=== PATIENT | male | born 1955 | race Caucasian/White ===

== ENCOUNTER → 2021-04-14 07:03 | Outpatient (CLI) | payer OTHER, SELFPAY ==
[2021-02-03 08:59] VITALS: BMI 45.0
--- NOTE | 2021-04-14 07:12 | MRI_ITS ---
HISTORY: Bilateral lower extremity radiculopathy. TECHNIQUE: Multiplanar and multisequence MR images of the lumbar spine. IV Contrast dosage and agent: None. # of images incl. paperwork: 130. COMPARISON: None. FINDINGS: VERTEBRAE: Vertebral body heights maintained. Degenerative fatty bone marrow endplate changes at multiple levels. ALIGNMENT: No significant anterior or posterior subluxation. CONUS: Normal morphology and position at L1-2. SOFT TISSUES: No paraspinal fluid collection. INTERVERTEBRAL DISCS: T12-L1, L1-2: No significant posterior disc herniation, central canal stenosis, or foraminal narrowing. L2-3:Mild disc bulge with facet arthropathy resulting in mild bilateral foraminal narrowing. No significant central canal stenosis. L3-4: Moderate disc bulge and facet arthropathy superimposed on a developmentally narrow spinal canal resulting in mild central canal stenosis and moderate bilateral foraminal narrowing. L4-5: Mild posterior disc bulge osteophyte complex and facet arthropathy superimposed on a developmentally narrow spinal canal with prominent dorsal epidural fat resulting in moderate-severe narrowing of the thecal sac and bilateral foramina. L5-S1: Mild posterior disc bulge osteophyte complex with annular fissure and facet arthropathy resulting in mild bilateral foraminal narrowing. Superimposed right paracentral disc extrusion with probable impingement of the right S1 nerve root. MRI/Spine Lumbar (Routine) IMPRESSION: Multilevel degenerative disc disease as described above. at 1650 Reported and signed by: Evita Schwab MD Electronically Signed: Evita Schwab MD at 16:49 EDT Tel , Service support ,
--- NOTE | 2021-04-14 07:12 | MRI_ITS ---
STUDY: MRI BRAIN WITH AND WITHOUT CONTRAST REASON FOR EXAM: Male, 65 years old. Parkinson''s disease TECHNIQUE: Standardized multiplanar fat and water weighted pulse sequences were obtained. 23ml IV Dotarem was administered for the contrast portion of the examination. COMPARISON: None. FINDINGS: Normal size of the ventricles and extra-axial spaces for the patient''s age. There is focal gliosis in the left parietal lobe consistent with old infarct.. No evidence for acute infarct at this time Normal bilateral basal ganglia. Normal thalami. There is no extra-axial fluid accumulation. Normal flow voids within the major intracranial circulation suggesting patency by spin echo criteria. Normal venous enhancement. There is no enhancing intra-axial or extra-axial abnormality. Normal sella turcica, pituitary gland, infundibular stalk, optic chiasm and hypothalamus. Normal tectal plate and pineal gland. Normal midbrain, justo and medulla. Foci of chronic ischemia within the right cerebellar hemisphere.. Normal basal cisterns. Normal bilateral temporal bones. Normal bilateral internal auditory canals. Postsurgical changes of the orbits. Mild mucosal thickening of the ethmoid air cells.. Normal calvarium and skull base. Normal visualized soft tissue structures. Normal visualized upper cervical spine. MRI/Brain W/WO Contrast IMPRESSION: Old left parietal lobe infarct and mild chronic ischemic changes in the right cerebellar hemisphere. No evidence for acute infarct. No enhancing lesions following contrast injection Electronically Signed: Edwin Hunt MD at 16:55 EDT , Service support ,
[2021-04-14 07:36] LABS: CREATININE FINGERSTICK 0.7 mg/dL (0.70-1.30); EGFR FINGERSTICK > 60.0000 mL/min (>60)
== END ==
PROVIDERS: Referring Provider Psychiatry & Neurology Neurology; Visit Provider Psychiatry & Neurology Neurology
DX: G20 Parkinson's disease (principal); M54.5 Low back pain; M54.16 Radiculopathy, lumbar region
CPT/HCPCS: 70553; 72148; A9575

== ENCOUNTER → 2021-05-03 08:50 | Outpatient (CLI) | payer OTHER, SELFPAY ==
[2021-04-28 15:30] VITALS: BMI 45.0
[2021-05-03 09:57] LABS: Hepatitis B Surface Antibody Reactive
[2021-05-05 20:08] LABS: Free Kappa Light Chains 23.2 mg/L (3.3-19.4); Free Lambda Light Chains 17.8 mg/L (5.7-26.3); HEPATITIS B SURFACE AG Negative (Negative); Hepatitis A IgM Antibody Negative (Negative); Hepatitis B Core AB IgM Negative (Negative); Vitamin B1, Thiamine 114.7 nmol/L (66.5-200.0)
[2021-05-06 10:58] LABS: Hep C Antibodies >11.0 s/co ratio (0.0-0.9); Hepatitis A AB, Total Negative (Negative)
== END ==
PROVIDERS: Referring Provider Psychiatry & Neurology Neurology; Visit Provider Psychiatry & Neurology Neurology
DX: G62.9 Polyneuropathy, unspecified (principal); B19.20 Unspecified viral hepatitis C without hepatic coma
CPT/HCPCS: 36415; 80074; 82746; 83883; 84425; 86706; 86708

== ENCOUNTER 2021-11-14 10:00 | Outpatient (CLI) | payer OTHER, SELFPAY ==
[2021-04-28 15:30] VITALS: BMI 45.0
--- NOTE | 2021-11-14 12:44 | NEURO ---
NCS and/or EMG Patient Report Ordering Doctor: Saeed Christensen DATE OF SERVICE: 11/14/21 Indication: Bilateral lower extremity numbness. Superimposed pain and weakness when walking for prolonged periods of time. History of lumbar spondylosis. Evaluate for lumbosacral radiculopathy. Findings: Nerve conduction studies were performed in the right and left lower extremity. The right peroneal motor study recording the extensor digitorum brevis showed a reduced amplitude, normal distal latency and mildly slowed conduction velocity. No conduction block or focal slowing was present across the fibular neck. The right tibial motor study recording the abductor hallucis brevis showed a reduced amplitude, normal distal latency and mildly slowed conduction velocity. The right sural sensory response showed an absent response. The right superficial peroneal sensory response showed an absent response. The left peroneal motor study recording the extensor digitorum brevis showed reduced amplitude, normal distal latency and mildly slowed conduction velocity. No conduction block or focal slowing was present across the fibular neck. The left tibial motor study recording the abductor hallucis brevis showed a reduced amplitude, normal distal latency and mildly slowed conduction velocity. The left sural sensory response showed an absent response. The left superficial peroneal sensory response showed an absent response. Needle EMG of the right and left lower extremities and lumbar paraspinal muscles was performed. No denervation was present in any muscle. Motor units were demonstrated reinnervation changes in a length-dependent fashion. However, significant reinnervation was also seen in the tensor fascia kj muscles bilaterally (breaking the pattern). Impression: This is an abnormal study. 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 The reinnervation changes seen in the tensor fascia kj muscles are suggestive, but not diagnostic, of superimposed, chronic L5 radiculopathies. However, there is no active denervation to suggest ongoing motor axon loss due to either etiology. lumbosacral radiculopathy, plexopathy, or peripheral neuropathy of either the right or left lower extremity. Andrew Salas D.O. Multi Select Codes Neurology Neurology Interp Codes: 05749-63 Musc test done w/n test comp (interp) (Qty:2) and 06610-02 Nrv cndj test 7-8 studies (interp)
== END 2021-11-14 23:59 | disposition home or self-care (01) ==
PROVIDERS: Referring Provider Psychiatry & Neurology Neurology; Visit Provider Psychiatry & Neurology Neurology
DX: G62.9 Polyneuropathy, unspecified (principal); M54.17 Radiculopathy, lumbosacral region
CPT/HCPCS: 95886; 95910

== ENCOUNTER → 2022-01-12 | Outpatient (CLI) | payer OTHER, MEDICARE, SELFPAY ==
[2022-01-16 16:09] LABS: Albumin 4.2 g/dL (2.9-4.4); Alpha-1-Globulins 0.2 g/dL (0.0-0.4); Alpha-2-Globulins 1.1 g/dL (0.4-1.0); Immunoglobulin A 334 mg/dL (61-437); Immunoglobulin G 1074 mg/dL (603-1613); Immunoglobulin M 95 mg/dL (20-172); PROEL- TOTAL PROTEIN 7.7 g/dL (6.0-8.5)
== END | disposition home or self-care (01) ==
LOC: MTLAB 08:45
PROVIDERS: Referring Provider Psychiatry & Neurology Neurology; Visit Provider Psychiatry & Neurology Neurology
DX: G62.9 Polyneuropathy, unspecified (principal)
CPT/HCPCS: 36415; 82784; 84165; 86334; 86335

== ENCOUNTER → 2023-10-09 | Outpatient (CLI) | payer OTHER, SELFPAY ==
--- NOTE | 2023-10-09 08:00 | CT_ITS ---
STUDY: LOW DOSE CT LUNG CANCER SCREENING REASON FOR EXAM: Male, 68 years old. SCREENING. The patient smoked 1 pack per day for 60 years. COPD. RADIATION DOSAGE (If Supplied By Facility): CTDIvol = ( 4.02 ) mGy, DLP = ( 136.92 ) mGycm TECHNIQUE: No contrast was administered. Low dose technique was utilized (average mAS-38 and kVp 120). 1.25 mm axial source images with a slice interval of 1.25-mm were reconstructed in lung windows. 2.5 mm axial source images with a slice interval of 2.5-mm were reconstructed in lung windows. 5.0 mm axial source images with a slice interval of 5.0-mm were reconstructed in soft tissue windows. COMPARISON: None. Emphysema: Hyperinflation. Diffuse emphysematous changes with bullous formation worse in the upper lobes. Increased markings with areas of confluence in the anterior medial aspect of the right middle lobe. This is suggestive of scarring although correlation with a PET scan is recommended. Endobronchial lesion: None Aorta: Atherosclerotic plaque formation of the aorta. CORONARY ARTERIES: Coronary artery calcification is seen. Heart: Unremarkable Pulmonary artery: Unremarkable Mediastinal nodes: Small mediastinal lymph nodes. Other chest and abdominal findings: CT/Low Dose CT Lung Screening IMPRESSION: Lung-RADS category 4A - Screening at 3 months with LDCT or evaluation with PET/CT may be used. IMPORTANT NOTES FOR USE: ACR Lung-RADS Version 1.1 Assessment Categories Release Date: 2018 Category: Coded 0-4 bases on nodule(s) with highest degree of suspicion. Negative screen is defined as categories 1 and 2; a positive screen is defined as categories 3 and 4. Category 3 and 4A nodules that are unchanged on interval CT should be coded as category 2, and individuals returned to screening in 12 months. Category 4X: Category 3 or 4 nodules with additional imaging findings that increase the suspicion of lung cancer, such as spiculation, GGN that doubles in size in 1 year, enlarged lymph notes, etc. Category Modifiers: S (significant finding unrelated to lung cancer) Electronically Signed: Curry Padron MD at 14:22 EST ,
--- NOTE | 2023-10-09 08:01 | AAAS_ITS ---
Reason For Study: HTN Aorta Measurements Aorta Doppler Measurements Proximal aorta measures1.61 x 1.58cm. in cross- Peak systolic flow velocities within the proximal sectional axis. aorta measure 83.2 cm/sec. Proximal aorta measures1.66cm. in longitudinal Peak systolic flow velocities within the mid aorta axis. measure 85 cm/sec. Mid aorta measures1.67 x 1.72cm. in cross- Peak systolic flow velocities within the distal sectional axis. aorta measure 99.5 cm/sec. Mid aorta measures1.73cm. in longitudinal axis. Distal aorta measures1.37 x 1.39cm. in cross- sectional axis. Distal aorta measures1.42cm. in longitudinal axis. Left Iliac Artery Left iliac artery measures 0.90 x 0.86 cm. in the cross-sectional axis. Left iliac artery measures 0.95 cm. in the longitudinal axis. Peak systolic velocity in the left iliac artery measures 95.9 cm/sec. Right Iliac Artery Right iliac artery measures 1.01 x 1.03 cm. in the cross-sectional axis. Right iliac artery measures 1.01 cm. in the longitudinal axis. Peak systolic velocity in the right iliac artery measures 103.1 cm/sec. Procedure Aorta IVC Iliac vasculature or bypass grafts [id number]. Exam performed in department. VL/AAA Screening Interpretation Summary Aorta patent, normal caliber. Bilateral iliac arteries patent, normal caliber Ordering Physician: ARCADIO HAMMOND Referring Physician: [facility] Performed By: Aleisha Lanza RVT
--- OUTSIDE RECORDS SUMMARY | 2023-10-09 08:07 | XMS RPT_ITS | CCD ---
Author Name Unknown Address [address] [place] [address] Organization [facility] Care Team Providers Care Mimeograph Operator Name Role Phone TO, DR NEWTON Steve Attending Unavaila ble TO, DR NEWTON Steve Primary Care Unavaila ble TO, DR NEWTON Steve Admitting Unavaila ble Nicholas Murillo Unavailable Unavailable Unavailable CHARLINE ALVA Consulting Unavailable BRITT, BRODY Oviedo Admitting Unavailable BRITT, BRODY A Primary Care Unavailable BRITT, BRODY Oviedo Attending Unavailable PROVIDER, UNKNOWN Consulting Unavailable TO, DR NEWTON Steve Admitting Unavaila ble TO, DR NEWTON Steve Primary Care Unavaila ble TO, DR NEWTON Steve Attending Unavaila ble TO, DR NEWTON Steve Admitting Unavaila ble TO, DR NEWTON Steve Primary Care Unavaila ble TO, DR NEWTON Steve Attending Unavaila ble BRITT, BRODY A Admitting Unavailable BRITT, BRODY A Primary Care Unavailable BRITT, BRODY Oviedo Attending Unavailable BADVALERI, CHARLINE Consulting Unavailable PROVIDER, UNKNOWN Consulting Unavailable Medications Completed/Discontinued Medications Medication Drug Class(es) Dates Sig (Normalized) Sig (Original) aspirin 81 mg delayed release oral tablet (1 source) Platelet Aggregation Inhibitor, Nonsteroidal Anti-inflammatory Drug Start: 04-12-2020 Aspirin 81 81 MG [facility] TAKE 1 TABLET DAILY DIRECTED. Quantity: 0 Refills: 0 Ordered: 12-Apr-2020 DO Start : 12-Apr-2020 Active ergocalciferol 1.25 mg oral capsule (1 source) Provitamin D2 Compound Start: 05-26-2019 take 1 capsule by mouth every week Vitamin D (Ergocalciferol) 1.25 MG (51000 UT) Oral Capsule TAKE 1 CAPSULE WEEKLY. Quantity: 12 Refills: 1 Ordered: 21-Oct-2019 Nicholas Murillo MD Start : 26-May-2019 Active finasteride 5 mg oral tablet (1 source) 5-alpha Reductase Inhibitor Start: 04-12-2020 take 1 tablet by mouth once daily Finasteride 5 MG Oral Tablet TAKE 1 TABLET DAILY. Quantity: 0 Refills: 0 Ordered: 12-Apr-2020 DO Start : 12-Apr-2020 Active flurbiprofen 100 mg oral tablet (1 source) Nonsteroidal Anti-inflammatory Drug Start: 05-02-2021 Flurbiprofen 100 MG Oral Tablet Quantity: 90 Refills: 0 Ordered: 02-May-2021 DO Start : 02-May-2021 Complete metoprolol tartrate 100 mg oral tablet (1 source) beta-Adrenergic Christ Start: 09-01-2019 take 1 tablet by mouth once daily Metoprolol Tartrate 100 MG Oral Tablet TAKE 1 TABLET EVERY 12 HOURS DAILY. Quantity: 180 Refills: 1 Ordered: 24-Nov-2020 Nicholas Murillo MD Start : 01-Sep-2019 Active rasagiline 1 mg oral tablet (1 source) Monoamine Oxidase Inhibitor take 1 tablet by mouth once daily Rasagiline Mesylate 1 MG Oral Tablet TAKE 1 TABLET DAILY. Quantity: 30 Refills: 11 Ordered: 24-Nov-2020 Nicholas Murillo MD Active rosuvastatin calcium 5 mg oral tablet (1 source) HMG-CoA Reductase Inhibitor Start: 04-12-2020 take 1 tablet by mouth once daily Rosuvastatin Calcium 5 MG Oral Tablet TAKE 1 TABLET DAILY. Quantity: 0 Refills: 0 Ordered: 12-Apr-2020 DO Start : 12-Apr-2020 Active Problems Active Problems Problem Classification Problem Date Documented Date Episodic/Chronic Acute cerebrovascular disease (1 source) Cerebrovascular accident; Translations: [Cerebral artery occlusion, unspecified with cerebral infarction] Chronic Disorders of lipid metabolism (1 source) Mixed hyperlipidemia; Translations: [Mixed hyperlipidemia] Chronic Essential hypertension (1 source) Benign hypertension; Translations: [Benign essential hypertension] Chronic Hyperplasia of prostate (1 source) Benign prostatic hypertrophy with outflow obstruction; Translations: [Hypertrophy (benign) of prostate with urinary obstruction and other lower urinary tract symptoms (LUTS)] Chronic Miscellaneous mental health disorders (1 source) Chronic insomnia; Translations: [Insomnia, unspecified] Chronic Mood disorders (1 source) Recurrent major depression in partial remission; Translations: [Major depressive affective disorder, recurrent episode, in partial or unspecified remission] Chronic Nutritional deficiencies (1 source) Vitamin D deficiency; Translations: [Unspecified vitamin D deficiency] Chronic Other and ill-defined cerebrovascular disease (4 sources) Cerebrovascular disease, unspecified; Translations: [Cerebrovascular disease, unspecified] Onset: 05-17-2021 Chronic Other nervous system disorders (1 source) Polyneuropathy, unspecified; Translations: [Polyneuropathy, unspecified] Onset: 07-18-2021 Chronic Other nervous system disorders (4 sources) Other abnormalities of gait and mobility; Translations: [Other abnormalities of gait and mobility] Onset: 05-17-2021 Episodic Parkinson`s disease (2 sources) Parkinson's disease; Translations: [Paralysis agitans] Onset: 05-17-2021 Chronic Spondylosis; intervertebral disc disorders; other back problems (1 source) Degeneration of lumbosacral intervertebral disc; Translations: [Degeneration of lumbar or lumbosacral intervertebral disc] Chronic Spondylosis; intervertebral disc disorders; other back problems (1 source) Radiculopathy, lumbosacral region; Translations: [Radiculopathy, lumbosacral region] Onset: 07-18-2021 Episodic Past or Other Problems Problem Classification Problem Date Documented Da te Episodic/Chronic Immunizations and screening for infectious disease (7 sources) Encounter for immunization; Translations: [Hepatitis C antibody test positive] Onset: 11-25-2020 Episodic Results Test Name Value Interpretation Reference Range Facil ity Vital Signs Date Time Vital Sign Value Performing Clinician Faci lity 05-10-2021 11:30-0400 Body height 157.99 cm Nicholas Murillo Work Phone: [facility] Work Phone: 05-10-2021 11:30-0400 Body mass index (BMI) [Ratio] 43.47 kg/m2 Nicholas Mady Ephraimtank Work Phone: [facility] Work Phone: 05-10-2021 11:30-0400 Body surface area Derived from formula 2.07 m2 Nicholas Murillo Work Phone: [facility] Work Phone: 05-10-2021 11:30-0400 Body temperature 96.6 [degF] Nicholas Murillo Work Phone: [facility] Work Phone: 05-10-2021 11:30-0400 Body weight 108.5 kg Nicholas Mady Yetank Work Phone: -[facility] Work Phone: 05-10-2021 11:30-0400 Diastolic blood pressure 62 mm[Hg] Nicholas Yetank Work Phone: -[facility] Work Phone: 05-10-2021 11:30-0400 Heart rate 60 /min Nicholas Mady Yetank Work Phone: -[facility] Work Phone: 05-10-2021 11:30-0400 SaO2% (BldA) [Mass fraction] 95 % Nicholas Yetank Work Phone: [facility] Work Phone: 05-10-2021 11:30-0400 Systolic blood pressure 122 mm[Hg] Nicholas Yetank Work Phone: [facility] Work Phone: Encounters Encounter Date Encounter Type Care Provider Facility Start: 07-18-2021 End: 09-01-2021 ambulatory BRODY BRITT [facility] Start: 05-17-2021 End: 07-15-2021 ambulatory CHARLINE ALVA [facility] Start: 05-10-2021 Patient encounter procedure Nicholas Yetank Work Phone: [facility] Work Phone: Start: 01-13-[address] NEWTON ARIZA [facility] Start: 11-25-2020 End: 12-02-[address] NEWTON ARIZA [facility] Patient encounter procedure Nicholas Murillo Work Phone: [facility] Work Phone: Payers Date Payer Category Payer Unknown [id number] 1955 Unknown [id number] 1955 Unknown [id number] [id number] 1955 Unknown [id number] Medicare [id number] Unknown Unknown [id number] History of Present illness Narrative Note Date & Type Note Facility History of Present illness Narrative The patient is being seen for the subsequent annual wellness visit.Past Medical, Surgical and Family History: reviewed and updated in chart.Interval History: Patient has not been hospitalized previously.Medications and Supplements: Medications and supplements, including calcium and vitamins reviewed and updated in chart.No, the patient is not using opioids.Health Risk Assessment:During the past 4 weeks:How much have you been bothered by feeling anxious, depressed, irritable or sad, downhearted or blue? Slightly.Has your physical and emotional health limited your social activities with family, friends, neighbors or groups? Quite a bit.In general bodily pain: Severe pain.Was someone available to help you if you needed or wanted help: Yes, as much as I wanted.The hardest physical activity you could do for at least 2 minutes: Heavy.Yes, can get to places out of walking distance without help.Yes, can shop for groceries or clothes without help.Yes, does prepare meals.Yes, does housework without help.Yes, handles money without help.Does not need help eating, bathing, dressing, or getting around home.Rates health in general: Fair.How have things been going for you? Pretty bad.Having difficulties driving a car: Sometimes.Always fastens seatbelt when in a car: Yes, usually.Has fallen or gotten dizzy when standing up: SometimesSexual problems: SometimesHas trouble eating: NeverHas problems with teeth or dentures: SometimesHas problems using the telephone: NeverTired or fatigued: Sometimes No, has not fallen 2 or more times in the past year. No, not afraid of falling.Number of drinks of wine, beer or other alcoholic beverages: 10 or more per week.Exercise for about 20 minutes 3 or more days a week: No, I usually do not exercise this much.Do you have trouble taking medicines the way told to take them: I always take them as prescribed.Confidence in control and management of most health problems: Somewhat cofident.Patient Self Assessment of Health Status: fair.Tobacco use: UserAlcohol use: UserIllicit drug use: UserCurrent diet: unhealthy diet, does consume adequate fluids and does consume caffeine.Exercise Frequency: infrequently.Depression/Suicide Screening: Patient has a current diagnosis of depression.Hearing Impairment: Patient has significant hearing impairment, bilaterally, He uses a hearing aid.Cognitive Impairment: No cognitive impairment observed, patient or family reported no cognitive impairment.Bathing: performs independently.Dressing: performs independently.Walking: performs independently.Toileting: performs independently.Feeding: performs independently.Personal Hygiene: performs independently.Bowels: continent.Bladder: continent.Managing Finances: needs assistance.Shopping: needs assistance.Managing Medications: performs independently.Housework / Basic Home Maintenance: needs assistance.Handling Transportation: needs assistance.Preparing Meals: needs assistance.Using the Telephone/ Communication Devices: performs independently.Falls Risk Screening:. JUAN has not fallen in the last 6 months.Home safety risk factors: none.Advance directives:. Patient has living will. Patient has healthcare POA.Juan presents with [facility] for wellness. He has been able to get by off Valium and narcotic. It has been rough, but he is making it.We reviewed blood work done by [facility]. He had a positive HCV antibody in 2018, unsure if this was followed upon, but he has had normal LFT's. 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 [facility] Work Phone: Summary Purpose Family History No Family History Records FoundNo Family History Records FoundNo Family History Records FoundNo Family History Records FoundNo Family History Records Found Advance Directives No Advanced Directives Records FoundNo Advanced Directives Records FoundNo Advanced Directives Records FoundNo Advanced Directives Records FoundNo Advanced Directives Records Found Chief Complaint Medicare wellness visit Additional Source Comments (unrecognized sect ion and content) No Status Records FoundNo Status Records FoundNo Status Records FoundNo Status Records FoundNo Status Records Found INFORMATION SOURCE (unrecogn ized section and content) DATE CREATED AUTHOR AUTHOR'S ORGANIZ ATION 01/14/2021 [facility] DATE CREATED AUTHOR AUTHOR'S ORGANIZ ATION 05/11/2021 [facility] DATE CREATED AUTHOR AUTHOR'S ORGANIZ ATION 05/11/2021 [facility] DATE CREATED AUTHOR AUTHOR'S ORGANIZ ATION 09/02/2021 [facility] FOR RECORDS PERTAINING TO PATIENTS WHO ARE OR HAVE BEEN ENROLLED IN A CHEMICAL DEPENDENCY/SUBSTANCEABUSE PROGRAM, SOME INFORMATION MAY BE OMITTED. This clinical summary was aggregated from multiple sources. Caution should be exercised in using it in the provision of clinical care. This summary normalizes information from multiple sources, and as a consequence, information in this document may materially change the coding, format and clinical context of patient data. In addition, data may be omitted in some cases. CLINICAL DECISIONS SHOULD BE BASED ON THE PRIMARY CLINICAL RECORDS. [employer] provides no warranty or guarantee of the accuracy or completeness of information in this document.
== END | disposition home or self-care (01) ==
LOC: CT 07:56
DX: Z12.2 Encounter for screening for malignant neoplasm of respiratory organs (principal); I10 Essential (primary) hypertension; F17.210 Nicotine dependence, cigarettes, uncomplicated
CPT/HCPCS: 71271; 76706

== ENCOUNTER → 2023-11-27 | Outpatient (CLI) | payer OTHER, SELFPAY ==
--- OUTSIDE RECORDS SUMMARY | 2023-11-27 07:20 | XMS RPT_ITS | CCD ---
Author Name Unknown Address [address] [place] [address] Organization [facility] Care Team Providers Care Group Program Manager Name Role Phone TO, DR NEWTON Steve [...] Drug Start: 04-12-2020 Aspirin 81 81 MG [facility] TAKE 1 TABLET DAILY DIRECTED. Quantity: 0 Refills: 0 Ordered: 12-Apr-2020 DO Start : 12-Apr-2020 Active ergocalciferol 1.25 mg oral capsule (1 source) Provitamin D2 Compound Start: 05-26-2019 take 1 capsule by mouth every week Vitamin D (Ergocalciferol) 1.25 MG (84835 UT) Oral Capsule TAKE 1 CAPSULE WEEKLY. [...] 100 mg oral tablet (1 source) beta-Adrenergic Crhist Start: 09-01-2019 take 1 tablet by mouth [...] height 157.99 cm Nicholas Murillo Work Phone: [facility] Work Phone: 05-10-2021 11:30-0400 Body mass index (BMI) [Ratio] 43.47 kg/m2 Nicholas Mady Ephraimtank Work Phone: [facility] Work Phone: 05-10-2021 11:30-0400 Body surface area Derived from formula 2.07 m2 Nicholas Murillo Work Phone: [facility] Work Phone: 05-10-2021 11:30-0400 Body temperature 96.6 [degF] Nicholas Murillo Work Phone: [facility] Work Phone: 05-10-2021 11:30-0400 Body weight 108.5 kg Nicholas Mady Yetank Work Phone: [facility] Work Phone: 05-10-2021 11:30-0400 Diastolic blood pressure 62 mm[Hg] Nicholas Yetank Work Phone: -[facility] Work Phone: 05-10-2021 11:30-0400 Heart rate 60 /min Nicholas Mady Yetank Work Phone: [facility] Work Phone: 05-10-2021 11:30-0400 SaO2% (BldA) [Mass fraction] 95 % Nicholas Yetank Work Phone: [facility] Work Phone: 05-10-2021 11:30-0400 Systolic blood pressure 122 mm[Hg] Nicholas Yetank Work Phone: [facility] Work Phone: Encounters Encounter Date Encounter Type Care Provider Facility Start: 07-18-2021 End: 09-01-2021 ambulatory BRODY BRITT [facility] Start: 05-17-2021 End: 07-15-2021 ambulatory CHARLINE ALVA [facility] Start: 05-10-2021 Patient encounter procedure Nicholas Yetank Work Phone: [facility] Work Phone: Start: 01-13-[address] NEWTON ARIZA [facility] Start: 11-25-2020 End: 12-02-[address] NEWTON ARIZA [facility] Patient encounter procedure Nicholas Murillo Work Phone: [facility] Work Phone: Payers Date Payer Category Payer Unknown [id number] 1955 Unknown [id number] 1955 Unknown [id number] [id number] 1955 Unknown [id number] [id number] Medicare [id number] Unknown Unknown [id number] History of Present illness Narrative Note Date [...] making it.We reviewed blood work done by NE. He had a positive HCV antibody in 2018, unsure if this was followed upon, but he has had normal LFT's. 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 [facility] Work Phone: Summary Purpose Family [...] DATE CREATED AUTHOR AUTHOR'S ORGANIZ ATION 01/14/2021 [facility] DATE CREATED AUTHOR AUTHOR'S ORGANIZ ATION 05/11/2021 [facility] DATE CREATED AUTHOR AUTHOR'S ORGANIZ ATION 05/11/2021 [employer] DATE CREATED AUTHOR AUTHOR'S ORGANIZ ATION 09/02/2021 [facility] FOR RECORDS PERTAINING TO PATIENTS WHO ARE [...] BE BASED ON THE PRIMARY CLINICAL RECORDS. [employer] provides no warranty or guarantee of the accuracy or completeness of information in this document.
--- NOTE | 2023-11-27 07:30 | PET_ITS ---
EXAMINATION: FDG PET/CT ? INDICATIONS: 68-year-old male with a history of pulmonary nodularity. ? COMPARISON EXAMINATION: CT of the chest report dated 10/09/2023. ? TECHNIQUE: Following the intravenous administration of 14.28 mCi of F-18 deoxyglucose via the right wrist, multiplanar image acquisitions of the head, neck, chest, abdomen and pelvis to the level of the midthigh, obtained at one-hour post radiopharmaceutical administration contemporaneously interpreted with the current CT of the chest, abdomen and pelvis dated 11/27/[address] of the chest report dated 10/09/2023 via coregistration reveal: ? SERUM GLUCOSE LEVEL:? 104 mg/dL? HEIGHT:?? 65 inches WEIGHT:?? 215 pounds ? FINDINGS: ? HEAD/NECK:? There is no evidence of abnormal increased glucose metabolism in the pharyngeal mucosal space, parapharyngeal space, oropharynx, bilateral-lateral and anterior neck, hypopharynx and distribution of the larynx. ? The visualized portion of the cerebral cortical-subcortical structures demonstrate symmetric and preserved glucose metabolism. ? CHEST:? There is no quantitative scintigraphic evidence of abnormal increased glucose metabolism within the context of the bilateral hemithorax pulmonary parenchyma, right and left hemithorax at the pleural interface, mediastinal structures, and left-right thoracic perihilum. There is visualized radiopharmaceutical concentration noted in the left ventricular myocardium, consistent with the [place]. ? CT of the chest demonstrates the following anatomic characteristics: Emphysematous changes are defined in the bilateral upper hemithorax. Atherosclerotic calcification is defined in the thoracic aorta without evidence of dilatation, aneurysm formation. Coronary arterial calcification is observed. Parenchymal density noted in the right mid-lower anteromedial lung zone is ametabolic. ? ABDOMEN/PELVIS:? Normal physiologic distribution of the radiopharmaceutical is identified in the hepatic and splenic parenchyma, both renal units, urinary bladder, and visualized intestinal tract. Diffuse intestinal tract is identified in all four quadrants of the abdomen and pelvis. ? CT of the abdomen and pelvis is remarkable for the following: Heterogeneous dense calcification is defined in the region of the pancreatic head-uncinate process without evidence of increased glucose consumption. Atherosclerotic calcification is defined in the abdominal aorta without evidence of dilatation, aneurysm formation. Pelvic arterial calcification is observed. Colonic diverticulosis is encountered without evidence of diverticulitis. Calcification is manifest in the prostate gland. Right and left inguinal soft tissue densities are ametabolic. ? SKELETAL:? Degenerative changes defined in the thoracic and lumbar spine demonstrate no evidence of increased glucose metabolism. There are no sclerotic, mixed sclerotic-lytic, or primarily lytic changes defined in the axial skeletal structures with evidence of increased FDG uptake. ? PET/PET/CT Tumor Base -Thigh Init IMPRESSION: 1. NEGATIVE EXAMINATION. There is no definitive quantitatively significant scintigraphic evidence of viable neoplasm. 2. Meticulous attention paid to the right mid lower anteromedial lung zone demonstrates no evidence of increased tracer uptake to correlate with the parenchymal density defined on CT of the chest dated 11/27/2023. 3. Anatomic stability may be ensured with repeat CT of the right lower anteromedial lung zone in 3-6 months if clinically indicated. (Gabi, Seminars in Thoracic and Cardiovascular surgery, 14:292, 2002). Electronic Signature Pop Sellers D.O. Accurate Quantification of SUVs for this report are calculated using the exclusive [employer]. ([place].S. Patent No. [id number] [phone] B2 [phone] [place] patent [id number] [id number] [id number]). Standardization and correction of the FDG SUV metric via [employer] technology allow for vendor non-specific objective quantitative examination comparison and optimization of the sensitivity and specificity of the FDG PET-CT examination. . [email or web address] Electronically Signed: Pop Sellers DO at 11:05 EDT ,
== END | disposition home or self-care (01) ==
LOC: ONC 07:10
DX: R91.8 Other nonspecific abnormal finding of lung field (principal)
CPT/HCPCS: 78815; A9552

== ENCOUNTER → 2024-06-04 | Outpatient (CLI) | payer OTHER, SELFPAY ==
--- NOTE | 2024-06-04 07:44 | CT_ITS ---
We are attempting to reach an attending provider to discuss findings. An addendum with communication details will be sent when the communication is complete. STUDY: CT CHEST WITHOUT CONTRAST REASON FOR EXAM: Male, [address] RADIATION DOSAGE (If Supplied By Facility): CTDIvol = ( 17.45 ) mGy, DLP = ( 628.00 ) mGycm TECHNIQUE: Transaxial imaging was performed without the administration of intravenous contrast material. Multiplanar coronal and sagittal images were reformatted. Individualized dose optimization techniques were used for this CT. COMPARISON: October 09, 2023 FINDINGS: CHEST There is emphysema of the lungs. There are fibrotic changes including cystic regions at the periphery of the apices. There is focal anterior medial right upper lobe consolidation adjacent to the minor fissure, with slight improvement compared to the prior exam. There is stable 0.5 cm groundglass opacity in the right upper lung. No new mass or nodule. There is no demonstrated pleural abnormality. There are calcifications of the coronary arteries. Normal mediastinum. Normal hilar regions. Normal unenhanced pulmonary arteries. There is atherosclerotic calcification of the aortic arch with tortuosity and elongation of the aortic arch and descending thoracic aorta. There are multi-level degenerative changes of the thoracic spine. There is 4.9 cm solid mass at the medial aspect of the left kidney. CT/Chest without Contrast IMPRESSION: Right upper lung scarring or atelectasis, with mild improvement compared to the prior exam. Emphysema and fibrotic densities. No new lung mass. Mass of the right kidney. Dedicated pre and postcontrast CT recommended for characterization. Electronically Signed: Nicholas Gutiérrez MD at 8:44 EDT ,
== END | disposition home or self-care (01) ==
LOC: CT 07:42
PROVIDERS: Referring Provider Family Medicine; Visit Provider Family Medicine
DX: R91.8 Other nonspecific abnormal finding of lung field (principal)
CPT/HCPCS: 71250

== ENCOUNTER → 2024-07-22 | Outpatient (CLI) | payer OTHER, SELFPAY ==
--- NOTE | 2024-07-22 07:51 | CT_ITS ---
STUDY: CT ABDOMEN WITH AND WITHOUT CONTRAST REASON FOR EXAM: Male, 69 years old. 5 CM RENAL MASS RADIATION DOSAGE (If Supplied By Facility): CTDIvol = ( 29.88 ) mGy, DLP = ( 3335.39 ) mGycm TECHNIQUE: Transaxial images were obtained pre and post I.V. administration of 100ml-ISOVUE 300, and without oral contrast. Sagittal and coronal images were reconstructed. Individualized dose optimization techniques were used for this CT. COMPARISON: None. FINDINGS: Minimal scarring at the lung bases. Coronary artery calcification. Normal liver. Normal gallbladder and extrahepatic biliary system. Normal spleen. There are pancreatic calcifications in the distribution of the ducts consistent with chronic pancreatitis. Normal bilateral adrenal glands. There is a 5 cm x 5.5 cm x 4.4 cm heterogeneous enhancing mass in the upper medial pole of the right kidney. A neoplastic process should be ruled out. Normal left kidney. Normal visualized stomach. Normal small intestine. Normal colon. The appendix is visualized and appears normal. There is scattered atherosclerotic calcification of the abdominal aorta, without a demonstrated aneurysm. Normal inferior vena cava. Normal retroperitoneum. Normal abdominal wall. There are degenerative changes of the visualized lumbar spine. CT/Abdomen W/WO IV Contrast IMPRESSION: 5 cm x 5.5 cm x 4.4 cm heterogeneous enhancing mass in the upper medial pole of the right kidney as described. A neoplastic process should be ruled out. Dense calcifications in the head and uncinate process of the pancreas in keeping with the chronic pancreatitis. Electronically Signed: Curry Padron MD at 14:41 EST ,
[2024-07-22 08:19] LABS: CREATININE FINGERSTICK < 1.0 mg/dL (0.70-1.30); EGFR FINGERSTICK > 60.0000 mL/min (>60)
== END | disposition home or self-care (01) ==
LOC: CT 07:50
PROVIDERS: Referring Provider Family Medicine; Visit Provider Family Medicine
DX: N28.89 Other specified disorders of kidney and ureter (principal)
CPT/HCPCS: 74170; Q9967